=== PATIENT | male | born 1990 | race Caucasian/White ===

== ENCOUNTER 2020-09-01 05:28 | Emergency (ER) | payer BC, OTHER ==
[2020-09-01 05:44] VITALS: BP 152/89; PULSE 73; TEMP 97.8; BMI 25.3
[2020-09-01] MEDS ORDERED: metroNIDAZOLE 250 MG TABLET PO ONE (05:55)
[2020-09-01] MEDS ORDERED: metroNIDAZOLE 250 MG TABLET ONE (05:59)
== END 2020-09-01 06:24 | disposition home or self-care (01) ==
LOC: JER 05:28
DX: K02.9 Dental caries, unspecified (principal)
CPT/HCPCS: 99284-25